=== PATIENT | female | born 1985 | race Caucasian/White ===

== ENCOUNTER 2016-05-03 00:09 | Emergency (ER) | payer MEDICAID ==
[2016-05-03] MEDS ORDERED: NEB-ALBUTEROL 2.5 MG/3 ML INH ONE (00:38)
[2016-05-03] MEDS ORDERED: KETOROLAC 60 MG/2 ML VIAL IM ONE (01:20)
[2016-05-03] MEDS ORDERED: DIAZEPAM 5 MG TAB ONE (02:00)
== END 2016-05-03 04:25 | disposition home or self-care (01) ==
LOC: ER 00:09
CPT/HCPCS: 71020; 94640; 96372